=== PATIENT | male | born 2000 | race Caucasian/White ===

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

== ENCOUNTER 2024-07-07 20:01 | Emergency (ER) | payer SELFPAY ==
[2024-07-07] VITALS (14 sets, daily range): BP systolic 99–163; BP diastolic 66–108; PULSE 72–100; RESP 14–21; TEMP 36.7–36.8; O2SAT 98–100; BMI 50.7
--- NOTE | 2024-07-07 20:13 | EKG12_ITS ---
Test Reason : DYSRHYTHMIA Blood Pressure : / mmHG Vent. Rate : 088 BPM Atrial Rate : 088 BPM P-R Int : 142 ms QRS Dur : 092 ms QT Int : 340 ms P-R-T Axes : 060 044 010 degrees QTc Int : 411 ms Normal sinus rhythm with sinus arrhythmia Nonspecific T wave abnormality Abnormal ECG Confirmed by CIERRA LINARES, KAIDEN ([id number]), image editor ARLEEN CHINO ([id number]) on 07/08/2024 8:51:28 AM Referred By: Confirmed By:KAIDEN NORTON MD
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
[2024-07-07] MEDS: 0.9% Normal Saline (1000mL) 1,000 ML 999 ML IV (20:18)
[2024-07-07] MEDS: Ondansetron 4 MG/2 ML Vial IV (20:26)
[2024-07-07] MEDS: fentaNYL 100 MCG/2 ML Ampul 50 MCG IV (20:28)
[2024-07-07] MEDS: Diphth,Pertuss(Acell),Tet Vac 0.5 ML Vial IM (20:30)
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
[2024-07-07 20:52] LABS: ALB/GLOB Ratio 1.2 RATIO (0.9-2.4); AST(SGOT) 29 U/L (15-37); Alanine Aminotransfer ALT/SGPT 34 U/L (16-61); Albumin, Serum 3.9 g/dL (3.2-5.0); Alkaline Phosphatase 58 U/L (45-117); Anion Gap 10 (5-15); BUN 15 mg/dL (7-18); BUN/Creat Ratio 13.6 RATIO (10-20); Chloride 107 mmol/L (98-107); EST Glomerular Filtration Rate 88 mL/min (>60); Est Glom Filt Rate - Afr Amer 106 mL/min (>60); Estimated Creatinine Clearance 154.73 ml/min; Globulin 3.3 g/dL (2.2-4.2); Glucose 112 mg/dL (74-106); Lipase 52 U/L (13-75); Potassium 3.5 mmol/L (3.5-5.1); Protein, Total 7.2 g/dL (6.4-8.2); Sodium Level 140 mmol/L (136-145); Troponin-I HS 5 pg/mL (3.0-78.0)
[2024-07-07] MEDS: Cefazolin 1 GM/50 ML BAG IV (21:01)
[2024-07-07] MEDS: Lidocaine 1% /Epi 1:100 (20ml) 20 ML Vial INFILT (21:03)
[2024-07-07 21:05] LABS: Absolute Lymphocyte Count 4.57 X10^3/uL (0.83-4.51); Absolute Neutrophil Count 5.4 X10^3/uL (2.0-7.7); Basophil# 0.04 X10^3/uL; Basophil% 0.4 % (0-1); Eosinophil# 0.25 X10^3/uL; Eosinophils% 2.3 % (0-5); Hematocrit 40.9 % (40-54); Lymphocyte # 4.57 X10^3/ul (0.83-4.51); Lymphocyte % 41.3 % (19-41); Mean Corp Hgb Conc 34.2 g/dL (32-36); Mean Corpuscular Hgb 29.7 pg (27.0-32.0); Mean Corpuscular Volume 86.7 fL (80-94); Mean Platelet Vol. 9.7 fl (6.2-12.0); Monocyte# 0.73 X10^3/uL; Monocyte% 6.6 % (0-10); NRBC Flagged by Analyzer 0 % (0-5); Neutrophil # 5.44 X10^3/uL (2.7-7.7); Platelet Count 248 K/mm3 (150-450); RBC Distribution Width CV 11.7 % (11.6-14.6); RBC Distribution Width SD 37.1 fl (35.1-43.9); Red Blood Count 4.72 M/mm3 (4.6-6.2); White Blood Count 11.1 K/mm3 (4.4-11.0)
[2024-07-07 21:24] LABS: Mucous, Urine 0 SEEN /hpf (<or=2+); Red Blood Cells-Urine 0 SEEN /hpf (0-5); Squamous Epithelial Cells - UA 0 SEEN /hpf (0-5)
[2024-07-07 21:27] LABS: Color, Urine Yellow (Yellow); Glucose, Dipstick Normal (Normal); Ketone-Dipstick Negative (Negative); Leukocyte Esterase-Dipstick Negative /ul (Negative); Nitrite-Dipstick Negative (Negative); Occult Blood-Urine 10 /ul (Negative); Protein-Dipstick 100 mg/dl (Negative); Urine Bilirubin Dipstick Negative (Negative); Urine Clarity Clear (Clear); Urine Urobilinogen Normal (Normal); Urine pH 6.5 (5.0 - 8.0)
[2024-07-07 21:42] LABS: Bacteria 1+ /hpf (None Seen); White Blood Cells 5-10 SEEN /hpf (0-5)
[2024-07-07 21:43] LABS: Coarse Granular Cast 0-5 SEEN /lpf (0-5 /lpf)
[2024-07-08] VITALS: BP 141/90
[2024-07-08 00:15] VITALS: BP 144/75
[2024-07-08] MEDS: HYDROmorphone 1 MG/ML Syringe IV (00:35)
[2024-07-08] MEDS: Ondansetron 4 MG/2 ML Vial IV (00:35)
== END 2024-07-08 00:37 | disposition short-term general hospital (02) ==
PROVIDERS: Emergency Provider Surgery; Visit Provider Surgery
DX: S27.0XXA Traumatic pneumothorax, initial encounter (principal); S21.112A Laceration without foreign body of left front wall of thorax without penetration into thoracic cavity, initial encounter; X99.9XXA Assault by unspecified sharp object, initial encounter
CPT/HCPCS: 12004; 71260; 74177; 80053; 81001; 83690; 84484; 85025; 90471; 90715; 93005; 96361; 96374; 96375; 99285; J7030; J7050; Q9967; A4216; J2405